=== PATIENT | female | born 1995 | race American Indian/Alaskan Native ===

== ENCOUNTER 2019-05-24 11:03 | Emergency (ER) | payer OTHER ==
[2019-05-24 11:15] VITALS: BP 151/85
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
== END 2019-05-24 12:16 | disposition left against medical advice (07) ==
LOC: ED 11:03
DX: S39.012A Strain of muscle, fascia and tendon of lower back, initial encounter (principal); V89.2XXA Person injured in unspecified motor-vehicle accident, traffic, initial encounter; Y93.89 Activity, other specified; Y92.410 Unspecified street and highway as the place of occurrence of the external cause; Y99.8 Other external cause status
CPT/HCPCS: 99282

== ENCOUNTER 2020-01-22 22:02 | Emergency (ER) | payer OTHER ==
[2020-01-22 23:15] VITALS: BP 139/70
[2020-01-22] MEDS ORDERED: predniSONE 50 MG TAB PO ONE (23:15)
--- NOTE | 2020-01-22 23:18 | Emergency Department Report ---
ED General Adult HPI - General Chief complaint: Dyspnea/Respdistress Stated complaint: ASTHMA Time Seen by Provider: 01/22/20 23:14 Source: patient Mode of arrival: Ambulatory Limitations: No Limitations - History of Present Illness Initial comments: 24-year-old female with history of asthma present with chief complaint of a 2- day gradual onset cough associated with dyspnea this evening which has now somewhat improved. She is out of her medications at home including albuterol solution and rescue inhaler. She denies any fever, current difficulty br eathing, chest pain. Other associated symptoms include nasal congestion and drainage. Symptoms are mild to moderate with no alleviating or exacerbating factors. - Related Data Previous Rx's Medication Instructions Recorded Last Taken Type ALBUTEROL NEB's [Proventil 0.083% 2.5 mg IH QID PRN #25 neb 01/22/20 Unknown Rx NEBS] Albuterol Sulfate [Proventil Hfa] 6.7 gm IH QID #1 hfa.aer.ad 01/22/20 Unknown Rx predniSONE [Deltasone] 50 mg PO QDAY #5 tab 01/22/20 Unknown Rx Allergies Allergy/AdvReac Type Severity Reaction Status Date / Time No Known Allergies Allergy Verified 05/24/19 11:11 ED Review of Systems ROS: Stated complaint: ASTHMA Other details as noted in HPI Comment: All other systems reviewed and negative ENT: as per HPI Respiratory: see HPI ED Past Medical Hx - Past Medical History Previous Medical History?: Yes Hx Asthma: Yes - Surgical History Past Surgical History?: No - Social History Smoking Status: Never Smoker Substance Use Type: None - Medications Home Medications: Home Medications Medication Instructions Recorded Confirmed Last Taken Type ALBUTEROL NEB's [Proventil 0.083% 2.5 mg IH QID PRN #25 neb 01/22/20 Unknown Rx NEBS] Albuterol Sulfate [Proventil Hfa] 6.7 gm IH QID #1 hfa.aer.ad 01/22/20 Unknown Rx predniSONE [Deltasone] 50 mg PO QDAY #5 tab 01/22/20 Unknown Rx ED Physical Exam - General Limitations: No Limitations General appearance: alert, in no apparent distress - Head Head exam: Present: atraumatic, normocephalic - Eye Eye exam: Present: normal appearance - ENT ENT exam: Present: mucous membranes moist - Neck Neck exam: Present: normal inspection - Respiratory Respiratory exam: Present: wheezes (Few faint wheezes). Absent: respiratory distress, rales, rhonchi, accessory muscle use - Cardiovascular Cardiovascular Exam: Present: regular rate, normal rhythm. Absent: systolic murmur, diastolic murmur, rubs, gallop - GI/Abdominal GI/Abdominal exam: Present: soft, normal bowel sounds - Extremities Exam Extremities exam: Present: normal inspection - Back Exam Back exam: Present: normal inspection - Neurological Exam Neurological exam: Present: alert, oriented X3 - Psychiatric Psychiatric exam: Present: normal affect, normal mood - Skin Skin exam: Present: warm, dry, intact, normal color. Absent: rash ED Course Vital Signs 01/22/20 23:07 Temperature 98.2 F Pulse Rate 82 Respiratory 18 Rate Blood Pressure 139/70 O2 Sat by Pulse 100 Oximetry ED Medical Decision Making - Radiology Data Radiology results: report reviewed Negative two-view chest - Medical Decision Making Patient presenting with cough and congestion for the past 2 to 3 days with wheezing earlier this evening now improved. Requesting refill of her medications. On exam there are few wheezes noted but no respiratory distress and O2 100%. We will check chest x-ray rule out pneumonia, give dose of prednisone and then refer for PCP follow-up. - Differential Diagnosis Asthma, viral syndrome, pneumonia Critical care attestation.: If time is entered above; I have spent that time in minutes in the direct care of this critically ill patient, excluding procedure time. ED Disposition Clinical Impression: Asthma exacerbation Qualifiers: Asthma severity: mild Asthma persistence: intermittent Qualified Code(s): J45.21 - Mild intermittent asthma with (acute) exacerbation Disposition: TO HOME OR SELFCARE Is pt being admited?: No Condition: Good Instructions: Asthma, Adult Prescriptions: predniSONE [Deltasone] 50 mg PO QDAY #5 tab ALBUTEROL NEB's [Proventil 0.083% NEBS] 2.5 mg IH QID PRN #25 neb PRN Reason: Wheezing Albuterol Sulfate [Proventil Hfa] 6.7 gm IH QID #1 hfa.aer.ad Referrals: YUNIOR JAEGER MD [Staff Physician] - 3-5 Days Time of Disposition: 23:39
--- NOTE | 2020-01-22 23:36 | XRay Report ---
CHEST 2 VIEWS INDICATION / CLINICAL INFORMATION: sob. FINDINGS: SUPPORT DEVICES: None. HEART / MEDIASTINUM: No significant abnormality. LUNGS / PLEURA: No significant pulmonary or pleural abnormality. No pneumothorax. ADDITIONAL FINDINGS: No significant additional findings. IMPRESSION: 1. No acute findings. Signer Name: Bimal Hughes MD Signed: 01/22/2020 11:31 PM Workstation Name: [id number]
== END 2020-01-22 23:45 | disposition home or self-care (01) ==
LOC: ED 22:02
DX: J45.901 Unspecified asthma with (acute) exacerbation (principal); Z79.899 Other long term (current) drug therapy
CPT/HCPCS: 71046; 99283; J7512

== ENCOUNTER 2020-12-14 15:29 | Emergency (ER) | payer OTHER ==
--- NOTE | 2020-12-14 20:37 | Emergency Department Report ---
ED Female HPI - General Chief complaint: Urogenital-Female Stated complaint: VAGINAL INJURY/TEAR Time Seen by Provider: 12/14/20 20:27 Source: patient Mode of arrival: Ambulatory Limitations: No Limitations - History of Present Illness Initial comments: Patient is a nulliparous 25-year-old -[place] female with past medical history of asthma who presents to the ED with complaint of acute onset severe vaginal pain and intermittent vaginal bleeding with clots after suffering a vaginal tear and abrasion during unprotected sexual intercourse 2 days ago with her sexual partner. Patient states that the vaginal pain is worsened and now she is experiencing intermittent bleeding with blood clots, dysuria and significant pain. Patient denies fever, chills, nausea, vomiting, dizziness, syncope, vaginal discharge, abdominal pain, low back pain, chest pain or shortness of breath. MD Complaint: vaginal bleeding, other (Vaginal tear during unprotected sexual intercourse) -: Sudden, days(s) (2) Location: other (vaginal wall) Radiation: non-radiating Severity: severe Severity scale (0 -10): 8 Quality: sharp, burning, aching Consistency: constant Improves with: none Worsens with: urination, intercourse, movement Are you Now?: No Last Menstrual Period: 11/22/20 EDC: 08/29/21 Associated Symptoms: denies other symptoms, vaginal bleeding, dysuria, other (vaginal tear and bleeding). denies: vaginal discharge, abdominal pain, nausea/vomiting, fever/chills, headaches, loss of appetite, hematuria, rash, seizure, shortness of breath, syncope, weakness - Related Data Sexually active: Yes : 0 Para: 0 A: 0 Previous Rx's Medication Instructions Recorded Last Taken Type ALBUTEROL NEB's [Proventil 0.083% 2.5 mg IH QID PRN #25 neb 01/22/20 Unknown Rx NEBS] Albuterol Sulfate [Proventil Hfa] 6.7 gm IH QID #1 hfa.aer.ad 01/22/20 Unknown Rx predniSONE [Deltasone] 50 mg PO QDAY #5 tab 01/22/20 Unknown Rx Dibucaine [Hemorrhoidal-Analgesic] 1 applic TP Q6H PRN #1 tube 12/14/20 Unknown Rx Doxycycline Hyclate 100 mg PO Q12H #28 capsule 12/14/20 Unknown Rx Ibuprofen [Motrin] 600 mg PO Q8H PRN #24 tablet 12/14/20 Unknown Rx Allergies Allergy/AdvReac Type Severity Reaction Status Date / Time No Known Allergies Allergy Verified 12/14/20 20:22 ED Review of Systems ROS: Stated complaint: VAGINAL INJURY/TEAR Other details as noted in HPI Constitutional: denies: chills, fever Eyes: denies: eye pain, eye discharge, vision change ENT: denies: ear pain, throat pain Respiratory: denies: cough, shortness of breath, wheezing Cardiovascular: denies: chest pain, palpitations Endocrine: no symptoms reported Gastrointestinal: denies: abdominal pain, nausea, diarrhea Genitourinary: abnormal menses, dyspareunia, other (vaginal tear with pain). denies: urgency, dysuria, discharge Musculoskeletal: denies: back pain, joint swelling, arthralgia Skin: denies: rash, lesions Neurological: denies: headache, weakness, paresthesias Psychiatric: denies: anxiety, depression Hematological/Lymphatic: denies: easy bleeding, easy bruising ED Past Medical Hx - Past Medical History Hx Asthma: Yes - Social History Smoking Status: Never Smoker Substance Use Type: None - Medications Home Medications: Home Medications Medication Instructions Recorded Confirmed Last Taken Type ALBUTEROL NEB's [Proventil 0.083% 2.5 mg IH QID PRN #25 neb 01/22/20 Unknown Rx NEBS] Albuterol Sulfate [Proventil Hfa] 6.7 gm IH QID #1 hfa.aer.ad 01/22/20 Unknown Rx predniSONE [Deltasone] 50 mg PO QDAY #5 tab 01/22/20 Unknown Rx Dibucaine [Hemorrhoidal-Analgesic] 1 applic TP Q6H PRN #1 tube 12/14/20 Unknown Rx Doxycycline Hyclate 100 mg PO Q12H #28 capsule 12/14/20 Unknown Rx Ibuprofen [Motrin] 600 mg PO Q8H PRN #24 tablet 12/14/20 Unknown Rx ED Physical Exam - General Limitations: No Limitations General appearance: alert, in no apparent distress - Head Head exam: Present: atraumatic, normocephalic, normal inspection - Eye Eye exam: Present: normal appearance, PERRL, EOMI Pupils: Present: normal accommodation - ENT ENT exam: Present: normal exam, normal orophraynx, mucous membranes moist, TM's normal bilaterally, normal external ear exam - Neck Neck exam: Present: normal inspection, full ROM - Respiratory Respiratory exam: Present: normal lung sounds bilaterally. Absent: respiratory distress, wheezes, rales, rhonchi, chest wall tenderness, accessory muscle use, decreased breath sounds, prolonged expiratory - Cardiovascular Cardiovascular Exam: Present: regular rate, normal rhythm, normal heart sounds. Absent: systolic murmur, diastolic murmur, rubs, gallop - GI/Abdominal GI/Abdominal exam: Present: soft, normal bowel sounds. Absent: tenderness, guarding, rebound, hyperactive bowel sounds, hypoactive bowel sounds, organomegaly - Bi-manual exam: Present: other (Pelvic exam deferred, patient prefers own Sammi- [employer]) - Extremities Exam Extremities exam: Present: normal inspection, full ROM, normal capillary refill - Back Exam Back exam: Present: normal inspection, full ROM. Absent: tenderness, CVA tenderness (R), muscle spasm, paraspinal tenderness, rash noted - Neurological Exam Neurological exam: Present: alert, oriented X3, CN II-XII intact, normal gait, reflexes normal - Psychiatric Psychiatric exam: Present: normal affect, normal mood - Skin Skin exam: Present: warm, dry, intact, normal color. Absent: rash ED Medical Decision Making - Medical Decision Making This is a nulliparous 25-year-old -[place] female with past medical history of asthma who presents to the ED with complaint of acute onset severe vaginal pain and intermittent vaginal bleeding with clots after suffering a vaginal tear and abrasion during unprotected sexual intercourse 2 days ago with her sexual partner. Patient states that the vaginal pain is worsened and now she is experiencing intermittent bleeding with blood clots, dysuria and significant pain. In the ED, patient is alert and oriented x3 and is not in any distress. Patient with discharge home on pain medications and prophylactic antibiotics and advised to follow-up with [facility] department for further evaluation and STD testing including HIV. Patient was advised to return to the ED immediately if symptoms get worse. Patient was also counseled on the importance of observing safe sexual practices. Patient verbalized understanding. - Differential Diagnosis Vaginal abrasion; vaginal injury; STD; UTI Critical care attestation.: If time is entered above; I have spent that time in minutes in the direct care o f this critically ill patient, excluding procedure time. ED Disposition Clinical Impression: Abrasion of vagina and vulva, initial encounter, Vaginal bleeding Superficial injury of vagina with infection Qualifiers: Encounter type: initial encounter Qualified Code(s): S30.95XA - Unspecified superficial injury of vagina and vulva, initial encounter; L08.9 - Local infection of the skin and subcutaneous tissue, unspecified Disposition: 01 HOME / SELF CARE / HOMELESS Is pt being admited?: No Does the pt Need Aspirin: No Condition: Stable Instructions: Abrasion, [id number], Abnormal Uterine Bleeding, [id number], Safe Sex Additional Instructions: Take medication with food, drink plenty of fluids and follow-up with your [facility] physician in 7 to 10 days for reevaluation. Consider following up with the [facility] department for further evaluation and test for HIV and other STDs. Return to the ED immediately if symptoms get worse. Prescriptions: Doxycycline Hyclate 100 mg PO Q12H #28 capsule Dibucaine [Hemorrhoidal-Analgesic] 1 applic TP Q6H PRN #1 tube PRN Reason: Vaginal pain Ibuprofen [Motrin] 600 mg PO Q8H PRN #24 tablet PRN Reason: Pain Referrals: [facility] [Outside] - 3-5 Days Time of Disposition: 20:37 Print Language: GRENADIAN
[2020-12-14 21:01] VITALS: BP 121/73
== END 2020-12-14 21:00 | disposition home or self-care (01) ==
LOC: ED 15:29
DX: S30.814A Abrasion of vagina and vulva, initial encounter (principal); N93.9 Abnormal uterine and vaginal bleeding, unspecified; J45.909 Unspecified asthma, uncomplicated; X58.XXXA Exposure to other specified factors, initial encounter; Y93.89 Activity, other specified; Y92.89 Other specified places as the place of occurrence of the external cause; Y99.8 Other external cause status
CPT/HCPCS: 99281

== ENCOUNTER 2021-06-30 09:21 | Emergency (ER) | payer SELFPAY ==
[2021-06-30] MEDS ORDERED: KETOROLAC 60 MG/2 ML INJ IM ONE (12:53)
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
[2021-06-30] MEDS ORDERED: CYCLOBENZAPRINE 10 MG TAB PO ONE (12:54)
--- NOTE | 2021-06-30 13:46 | Cat Scan Report ---
CT head/brain wo con INDICATION / CLINICAL INFORMATION: 26 years Female; stroke. TECHNIQUE: Routine CT head without contrast. All CT scans at this location are performed using CT dos e reduction for ALARA by means of automated exposure control. COMPARISON: None. FINDINGS: BRAIN / INTRACRANIAL CONTENTS: The brain parenchyma appears to demonstrate appropriate attenuation. T he ventricular system is within normal limits in size and configuration. There is no clear CT evidenc e of acute intracranial hemorrhage or significant mass effect. ORBITS: No significant abnormality of visualized orbits. SINUSES / MASTOIDS: No significant abnormality in the visualized paranasal sinuses or mastoid air rea ls. CRANIOCERVICAL JUNCTION: No significant abnormality. ADDITIONAL FINDINGS: There are a couple of ill-defined lucencies involving frontal calvarium with one near the left vertex measuring 1.2 cm in greatest AP dimension. The overlying cortex is intact and t he findings are nonspecific. IMPRESSION: 1. There is no CT evidence of acute intracranial process. Signer Name: Daryl Garzon MD Signed: 06/30/2021 1:41 PM Workstation Name: [id number]
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
[2021-06-30 14:00] LABS: HCG Qualitative,Urine Negative (Negative)
[2021-06-30 14:39] VITALS: BP 124/88
== END 2021-06-30 14:38 | disposition home or self-care (01) ==
LOC: ED 09:21
DX: M54.2 Cervicalgia (principal); R51.9 Headache, unspecified; J45.909 Unspecified asthma, uncomplicated; Z91.013 Allergy to seafood; Z91.018 Allergy to other foods; Z79.899 Other long term (current) drug therapy
CPT/HCPCS: 70450; 72125; 81025; 96372; 99284; J1885